=== PATIENT | male | born 1980 | race Hispanic/Latino ===

== ENCOUNTER 2018-12-05 16:40 | Emergency (ER) | payer OTHER ==
[~2018-12-05 16:40] MED LIST: ISOVUE-370 76%-LOCM 1 ML ONE
[2018-12-05] MEDS ORDERED: Ketorolac Tromethamine 30 MG/ML VIAL ONE (17:49)
[2018-12-05] MEDS ORDERED: Ondansetron PF 4 MG/2 ML Vial ONE (17:49)
[2018-12-05 18:17] LABS: #Basophils 0.1 thou/uL (0.0-0.2); #Lymphocytes 0.7 thou/uL (1.20-3.40); #Monocytes 0.7 thou/uL (0.11-0.59); #Neutrophils 10.2 thou/uL (1.40-6.50); %Basophils 0.5 % (0.0-1.0); %Eosinophils 0.2 % (0.0-10.0); %Lymphocytes 5.9 % (21.0-51.0); %Monocytes 6.2 % (0.0-10.0); %Neutrophils 87.3 % (42.0-75.0); Hemoglobin 14.2 g/dL (14.0-18.0); Mean Corpuscular HGB CONC 35.7 g/dL (32.0-36.0); Mean Corpuscular Hemoglobin 32.1 pg (27.0-31.0); Mean Corpuscular Volume 89.9 fL (78.0-98.0); Mean Platelet Volume 8.7 fL (7.4-10.4); Platelet Count 149 thou/uL (130-400); RBC Distribution Width 11.3 % (11.5-14.5); Red Blood Cell (RBC) Count 4.41 mill/uL (4.70-6.10); White Blood Cell (WBC) Count 11.7 thou/uL (4.8-10.8)
[2018-12-05 18:39] LABS: ALT (SGPT) 10 U/L (8-55); AST (SGOT) 17 U/L (5-34); Albumin 4.2 g/dL (3.5-5.0); Alkaline Phosphatase 58 U/L (40-150); Anion Gap 10 mmol/L (10-20); BUN (Urea Nitrogen) 12 mg/dL (8.9-20.6); Bilirubin, Total 1.3 mg/dL (0.2-1.2); Calc. Creatinine Clearance 0 mL/min (70-130); Calcium 9.4 mg/dL (7.8-10.44); Carbon Dioxide 25 mmol/L (22-29); Chloride 105 mmol/L (98-107); Estimated GFR-MDRD 62; Globulin 2.7 g/dL (2.4-3.5); Glucose 109 mg/dL (70-105); Lipase 15 U/L (8-78); Potassium 3.8 mmol/L (3.5-5.1); Protein, Total 6.9 g/dL (6.0-8.3); Sodium 136 mmol/L (136-145)
--- NOTE | 2018-12-05 18:43 | CT ---
CT ABDOMEN AND PELVIS: 12/05/2018 HISTORY: Right-sided abdominal pain/flank pain. COMPARISON: None. TECHNIQUE: Axial CT imaging obtained at 5 mm intervals, from the lung bases through the pubic symphysis, with in travenous contrast. Coronal reformatted imaging obtained. FINDINGS: The imaged lung bases are unremarkable. No free intraperitoneal air or fluid. The liver, gallbladder, pancreas, adrenal glands, and left kidney are unremarkable. Nonspecific splenomegaly noted, with the spleen measuring 15.6 cm in AP dimension. There is perinephric stranding, hydronephrosis, and slight hypoenhancement involving the right kidney . This is secondary to an obstructing stone within the proximal right ureter, near the ureteropelvic junction, measuring 6-7 mm. Limited assessment of the bowel, including the appendix, appears unremarkable. The vascular structures appear patent. No lymphadenopathy is noted within the abdomen or pelvis. No acute osseous abnormality is seen. IMPRESSION: 1. Obstructive uropathy on the right, secondary to a 6-7 mm obstructing stone within the proximal ri ght ureter. 2. Splenomegaly. POS: [facility]
[2018-12-05 20:05] LABS: Bilirubin Negative (Negative); Blood, Urine Negative (Negative); Clarity Clear (Clear); Glucose, Urine (Dipstick) Normal (Negative); Leukocyte Negative Leu/uL (Negative); Nitrite Negative (Negative); Protein, Urine (Dipstick) 20 mg/dL (Neg-Trace); Urobilinogen Normal mg/dL (Less than 2)
[2018-12-05] MEDS ORDERED: HYDROcodone/Acetaminophen 10/325 mg Tablet ONE (21:01)
[2018-12-05] MEDS ORDERED: Ondansetron ODT 4 MG TAB ONE (23:26)
== END 2018-12-05 21:34 | disposition home or self-care (01) ==
LOC: EEVIPCON 16:40 → ERS 16:40
DX: N13.2 Hydronephrosis with renal and ureteral calculous obstruction (principal); I10 Essential (primary) hypertension; J45.909 Unspecified asthma, uncomplicated; F32.9 Major depressive disorder, single episode, unspecified; G43.909 Migraine, unspecified, not intractable, without status migrainosus; Z79.899 Other long term (current) drug therapy
CPT/HCPCS: 36415; 74177; 80053; 81003; 83690; 85025; 96361; 96374; 96375; J1885; J2405; Q0162; Q9966